=== PATIENT | male | born 1980 | race Caucasian/White ===

== ENCOUNTER 2017-05-29 08:06 | Inpatient (IN) | payer BC ==
[2017-05-22 11:22] VITALS: BMI 35.0
--- NOTE | 2017-05-27 17:00 | History and Physical ---
History & Physical Date May 27, 2017. Chief Complaint pain Right Hip History of Present Illness The patient is a 36 year old male with complaints of terrible right hip and groin pain for years. Cant do adls. limping all the time. Has tried other forms of conservative therapy with no help. Pt is ready for right hip replacement. Additional History Hepatic Disease: No Endocrine Disorder: No Kidney Disease: No Hypertension: No Heart Disease: No Bleeding Tendencies: No Infectious Diseases: No Allergies Coded Allergies: Loratadine (Verified Allergy, Unknown, UNK RXN, OCCURED A CHILD, ) Sulfa Antibiotics (Verified Allergy, Unknown, UNK RXN OCCURED A CHILD, 05/22/17) Home Medications Scheduled PRN Ibuprofen (Motrin), 400 MG PO Q6H PRN for Pain Physical Examination Skin: warm/dry, no rash Eyes: normal inspection, EOMI, sclerae normal ENT: normal ENT inspection, pharynx normal Head: normocephalic, atraumatic Neck: supple, no adenopathy, trachea midline Respiratory/Chest: lungs clear, normal breath sounds, no respiratory distress Cardiovascular: regular rate, rhythm, no edema, no murmur Abdomen / GI: normal bowel sounds, non tender Back: normal inspection Extremities: + pertinent finding (pain with rom right hip) Neurologic/Psych: no motor/sensory deficits, alert, normal reflexes, oriented x 3 Diagnosis DJD RIGHT HIP Plan of Treatment PLAN IS FOR ADMISSION AND ELECTIVE RIGHT TOTAL HIP ARTHROPLASTY.
[2017-05-29] VITALS (10 sets, daily range): BP systolic 119–161; BP diastolic 66–88; PULSE 77–107; TEMP 36.6–36.9; O2SAT 96–98; Ht 182.9 cm; Wt 116.0 kg
[~2017-05-29] VITALS: Ht 182.9 cm; Wt 116.0 kg
[2017-05-29] MEDS: TRANEXAMIC ACID INJ 1,000 MG in SODIUM CHLORIDE 0.9% 100ML 100 ML IV SCH ×2 (06:30→10:22)
[~2017-05-29 08:06] MED LIST: ACETAMINOPHEN 500 MG TAB PO SCH; CEFAZOLIN 2000 MG/60 ML D5W 60 ML IV SCH; CeleBREX 200 MG CAP PO SCH; DEXAMETHASONE 4 MG TAB PO SCH; FAMOTIDINE 20 MG TAB PO SCH; IBUP-1459 PO; LACTATED RINGER'S 1000ML 1,000 ML IV SCH; LACTATED RINGER'S 1000ML 500 ML IV ONE; LACTATED RINGER'S 1000ML IV SCH; METOCLOPRAMIDE HCL 10 MG TAB PO SCH; ROPIVACAINE 5MG/ML 30 ML 150 MG, BUPIVACAINE/EPINEPHR 0.5% MPF 30 ML, KETOROLAC TROMETH... INFIL SCH
[2017-05-29] MEDS ORDERED: BUPIVACAINE 0.5 % 5 MG/1 ML PF 10ML VIAL ONE (08:09)
[2017-05-29] MEDS ORDERED: MIDAZOLAM HCL 1 MG/ML 2ML VIAL ONE (09:08)
[2017-05-29] MEDS ORDERED: FENTANYL CITRATE INJ 50 MCG/1 ML 2 ML VIAL ONE (09:08)
[2017-05-29] MEDS ORDERED: ONDANSETRON INJ 2 MG/ML 2 ML VIAL IV PRN ×2 (09:15→12:15)
[2017-05-29] MEDS ORDERED: PHENYLEPHRINE 100MCG/ML 5ML SYR IV PRN (09:15)
[2017-05-29] MEDS ORDERED: HYDROmorphone INJ 2 MG/ML SYR/VIAL IV PRN (09:15)
[2017-05-29] MEDS ORDERED: FLUMAZENIL 0.1 MG/1 ML 10 ML VIAL IV PRN (09:15)
[2017-05-29] MEDS ORDERED: NALOXONE HCL 0.4 MG/1 ML VIAL/CARP IV PRN (09:15)
[2017-05-29] MEDS ORDERED: LABETALOL HCL IV 5 MG/ML 20ML IV PRN (09:15)
[2017-05-29] MEDS ORDERED: EpHEDrine SULFATE INJ 50 MG/ML AMP IV PRN (09:15)
[2017-05-29] MEDS ORDERED: FENTANYL CITRATE INJ 50 MCG/1 ML 2 ML VIAL IV PRN (09:15)
[2017-05-29] MEDS ORDERED: MEPERIDINE HCL 25 MG/ML CARP IV PRN (09:15)
[2017-05-29] MEDS ORDERED: ATROPINE SULFATE 0.1 MG/ML 5ML SYR IV PRN (09:15)
--- NOTE | 2017-05-29 09:49 | History & Physical Bridge Note ---
H&P Re-Evaluation Bridge Note: I have examined the patient, reviewed the History & Physical and in the interval since the performance of the History & Physical I have noted the following changes of clinical significance: No changes noted
[2017-05-29] MEDS ORDERED: ORTHO JOINT ANESTHETIC ONE (10:12)
[2017-05-29] MEDS ORDERED: POVIDONE-IODINE OP SOLN 30 ML BTL ONE (10:12)
[2017-05-29] MEDS ORDERED: BACITRACIN 50000 UNIT VIAL ONE (10:12)
[2017-05-29] MEDS ORDERED: PROPOFOL IV EMULSION 10 MG/ML 20 ML VIAL IV ONE (11:29)
[2017-05-29] MEDS ORDERED: LIDOCAINE HCL 2% 2 ML VIAL (20MG/ML) ONE (11:29)
[2017-05-29] MEDS ORDERED: EpHEDrine SULFATE 50MG/5ML SYR ONE (11:30)
[2017-05-29] MEDS ORDERED: ZOLPIDEM TARTRATE 5 MG TAB PO PRN (12:15)
[2017-05-29] MEDS ORDERED: ALUMINUM/MAGNESIUM/SIMETH (MAALOX MAX) 30 ML UDC PO PRN (12:15)
[2017-05-29] MEDS ORDERED: MAGNESIUM HYDROXIDE SUSP 30 ML UDC PO PRN (12:15)
[2017-05-29] MEDS ORDERED: BISACODYL 10 MG SUPP PR PRN (12:15)
--- NOTE | 2017-05-29 12:16 | [facility] Operative Report ---
Operative Report Operative Date May 29, 2017. Pre-Operative Diagnosis Right degenerative joint disease, hip Post-Operative Diagnosis same Procedure(s) Performed Right Total Hip Arthroplasty Surgeon Dr Dany Lyn [employer] Consultant Surgeon(s) Leeroy TORRE Estimated Blood Loss 70CC Findings As above Specimens A. Right femoral Head Complication(s) None Description of Procedure IMPLANTS USED: [place] size 58 mm PSL GUERRERO-coated acetabular cup, one acetabular screw, a size 48 mm MDM liner, an Accolade 2 stem size 4 with a 127 neck, and a size 28 mm +4 ceramic head INDICATIONS: pleasant male who has unfortunately failed all forms of conservative measures. Therefore, they have has decided to undergo elective surgical intervention. All risks and benefits of the surgery were discussed with the patient and the family in entirety. PROCEDURE: The patient was brought to the operating room and properly identified by myself, anesthesia, and staff. Patient was given a spinal anesthetic and placed on the operating table with the right hip up. The hip was then prepped and draped in the standard orthopedic fashion. We made a standard posterolateral approach over the greater trochanteric area. We then dissected down to subcutaneous tissue until the fascia was identified. We incised the fascia in line with the skin incision. We then split the gluteus jude muscles with finger dissection. We then put the Charnley retractor in place. We placed the retractor underneath the gluteus medius to expose the piriformis. The piriformis was then tagged with a tag suture and released from the insertion from the greater trochanteric area with the use of electrocautery. We then performed a T capsulotomy and the femoral head and neck were atraumatically dislocated. We then performed femoral neck osteotomy at the pre-template site. We removed the femoral head and neck without difficulty. We then placed the retractor around the acetabulum. We then began to ream the acetabulum to the appropriate size. We then impacted the cup into place and had a very good fixation within the pelvis. We then put the liner in place as well. Then using multiple size approaches from the Accolade 2 system a size #4 fit very nicely in the proximal femur. I then put trial components in place. WE had very good range of motion, excellent stability, and excellent leg length equality. We removed the trial components and irrigated the wound. We then impacted the components in place and irrigated the wound once more. We then closed the capsule and fascia with a 0 Vicryl suture, the deep dermis with 2-0 Vicryl suture, and finally the skin with a running 3-0 Vicryl subcuticular stitch. A sterile dressing was applied. The patient was taken to the recovery room in stable condition. Due to the complex nature of the procedure, the entire surgery was performed with the operational assistance of [the (COR[facility])]. The blood bank assistant was under direct supervision, was involved in the actual performance of all aspects of the surgical procedure including hemostasis, tissue retraction and incision, instrument management, patient positioning, and wound closure. I attest to the content of the Intraoperative Record and any orders documented therein. Any exceptions are noted below.
--- NOTE | 2017-05-29 13:27 | Anesthesiology Progress Note ---
Anesthesia Post Op Note Date & Time May 29, 2017 at 13:27 Vital Signs Pain Intensity: 0 Vital Signs Past 12 Hours Date Time Temp Pulse Resp B/P (MAP) Pulse Ox O2 Delivery O2 Flow Rate FiO2 05/29/17 13:21 125/79 05/29/17 13:20 69 15 05/29/17 13:20 69 15 97 05/29/17 13:16 128/77 05/29/17 13:15 75 16 97 05/29/17 13:15 74 16 05/29/17 13:11 129/71 05/29/17 13:10 85 18 05/29/17 13:10 85 18 98 05/29/17 13:09 81 23 05/29/17 13:09 78 23 97 05/29/17 13:06 123/73 05/29/17 13:04 73 18 97 05/29/17 13:04 73 18 05/29/17 13:01 120/71 05/29/17 12:59 77 21 05/29/17 12:59 77 21 97 05/29/17 12:56 126/69 05/29/17 12:54 81 19 98 05/29/17 12:54 81 19 05/29/17 12:51 126/74 05/29/17 12:50 123/72 05/29/17 12:49 84 05/29/17 12:49 36.6 77 15 123/72 97 Nasal Cannula 2 05/29/17 12:49 84 97 05/29/17 08:24 36.9 79 20 161/88 98 Room Air Notes Mental Status: alert / awake / arousable, participated in evaluation Pt Amnestic to Procedure: Yes Nausea / Vomiting: adequately controlled Pain: adequately controlled Airway Patency, RR, SpO2: stable & adequate BP & HR: stable & adequate Hydration State: stable & adequate Neuraxial Anesthesia: was administered, sensory block is resolving Anesthetic Complications: no major complications apparent
[2017-05-29] MEDS: SODIUM CHLORIDE 0.9% 1000ML 1,000 ML IV SCH ×2 (14:42→21:53)
[2017-05-29] MEDS: ACETAMINOPHEN 500 MG TAB PO SCH ×2 (16:06→23:54)
[2017-05-29] MEDS: CEFAZOLIN IV 2,000 MG in DEXTROSE 5% 50ML 50 ML IV SCH (18:24)
[2017-05-29] MEDS ORDERED: TRANEXAMIC ACID INJ 1,000 MG in SODIUM CHLORIDE 0.9% 100ML 100 ML IV SCH (18:30)
[2017-05-29] MEDS: OXYCODONE HCL IR 5 MG TAB (IMMEDIATE RELEASE) PO PRN ×2 (18:31→23:56)
[2017-05-29] MEDS: DOCUSATE SODIUM 100 MG CAP PO SCH (20:39)
[2017-05-29] MEDS: ASPIRIN 81 MG ECTAB PO SCH (20:39)
[2017-05-30] MEDS: CEFAZOLIN IV 2,000 MG in DEXTROSE 5% 50ML 50 ML IV SCH (01:56)
[2017-05-30 03:00] VITALS: BP 135/80; PULSE 82; TEMP 36.6; O2SAT 96
[2017-05-30 06:27] LABS: MEAN CELL VOLUME 89.5 fL (80-100); MEAN CORPUSCULAR HEMOGLOBIN 31.9 pg (25-34); MEAN CORPUSCULAR HGB CONC 35.6 g/dl (32-36); MEAN PLATELET VOLUME 9.7 fL (7.4-10.4); PLATELET COUNT 210 K/uL (130-400); RED BLOOD COUNT 4.58 M/uL (4.7-6.1); WHITE BLOOD COUNT 8.95 K/uL (4.8-10.8)
[2017-05-30 07:01] VITALS: BP 134/76; PULSE 75; TEMP 36.8; O2SAT 98
[2017-05-30 07:08] LABS: COMPLETE YES; IG% 0.2 %; LYMPH % 9.4 %; LYMPH ABS # 0.84 K/uL (1.2-3.4); MONO % 7.2 %; NEUT % 83.2 %
[2017-05-30] MEDS: ACETAMINOPHEN 500 MG TAB PO SCH ×2 (07:26→16:50)
[2017-05-30] MEDS ORDERED: DEXAMETHASONE INJ 10 MG in SYRINGE 0 ML IV SCH (07:30)
[2017-05-30] MEDS: SODIUM CHLORIDE 0.9% 1000ML 1,000 ML IV SCH (07:33)
--- NOTE | 2017-05-30 07:58 | Orthopedic Progress Note ---
Orthopedic Progress Note Date of Service May 30, 2017. Subjective Post OP Day: 1 Reports: feeling well, pain controlled w PO medications, Denies: complaints, chest pain, SOB, nausea / vomiting, light headedness, calf pain Objective calves soft nontender, N/V intact, hip located, capillary refill less than 2 sec., dressing C/D/I, A&O x3, toes mobile, hemovac drainage (125/50cc) Date Time Temp Pulse Resp B/P (MAP) Pulse Ox O2 Delivery O2 Flow Rate FiO2 05/30/17 07:01 36.8 75 19 134/76 (95) 98 Room Air 05/30/17 03:00 36.6 82 18 135/80 (98) 96 Room Air 05/29/17 23:55 Room Air 05/29/17 23:00 36.7 100 18 119/66 (83) 96 Room Air 05/29/17 19:09 36.8 107 18 143/82 (102) 97 Room Air 05/29/17 16:50 36.7 105 18 138/80 (99) 98 Nasal Cannula 2.0 05/29/17 15:50 36.6 86 18 141/84 (103) 96 Nasal Cannula 2.0 05/29/17 15:15 Nasal Cannula 2.0 05/29/17 14:50 36.6 80 18 130/81 (97) 97 Nasal Cannula 2.0 05/29/17 14:20 36.6 79 18 127/80 (96) 98 Nasal Cannula 2.0 05/29/17 14:14 96 Nasal Cannula 2.0 05/29/17 14:09 96 Nasal Cannula 2.0 05/29/17 14:05 36.7 77 16 136/87 (103) 96 Nasal Cannula 2.0 05/29/17 13:27 71 16 05/29/17 13:27 71 16 05/29/17 13:27 71 16 97 05/29/17 13:27 71 16 97 05/29/17 13:26 127/75 05/29/17 13:26 127/75 05/29/17 13:23 36.8 74 20 124/74 97 Nasal Cannula 2 05/29/17 13:22 72 18 05/29/17 13:22 72 18 05/29/17 13:22 72 18 97 05/29/17 13:22 72 18 97 8/28/17 13:21 125/79 05/29/17 13:20 69 15 05/29/17 13:20 69 15 97 05/29/17 13:16 128/77 05/29/17 13:15 75 16 97 05/29/17 13:15 74 16 05/29/17 13:11 129/71 05/29/17 13:10 85 18 05/29/17 13:10 85 18 98 05/29/17 13:09 81 23 05/29/17 13:09 78 23 97 05/29/17 13:06 123/73 05/29/17 13:04 73 18 97 05/29/17 13:04 73 18 05/29/17 13:01 120/71 05/29/17 12:59 77 21 05/29/17 12:59 77 21 97 05/29/17 12:56 126/69 05/29/17 12:54 81 19 98 05/29/17 12:54 81 19 05/29/17 12:51 126/74 05/29/17 12:50 123/72 05/29/17 12:49 84 05/29/17 12:49 36.6 77 15 123/72 97 Nasal Cannula 2 05/29/17 12:49 84 97 05/29/17 08:24 36.9 79 20 161/88 98 Room Air Laboratory Results 24 Hours: Test 05/30/17 05:56 White Blood Count 8.95 K/uL Red Blood Count 4.58 M/uL Hemoglobin 14.6 g/dL Hematocrit 41.0 % Mean Corpuscular Volume 89.5 fL Mean Corpuscular Hemoglobin 31.9 pg Mean Corpuscular Hemoglobin Concent 35.6 g/dl Platelet Count 210 K/uL Mean Platelet Volume 9.7 fL Neutrophils (%) (Auto) 83.2 % Lymphocytes (%) (Auto) 9.4 % Monocytes (%) (Auto) 7.2 % Eosinophils (%) (Auto) 0.0 % Basophils (%) (Auto) 0.0 % Neutrophils # (Auto) 7.45 K/uL Lymphocytes # (Auto) 0.84 K/uL Monocytes # (Auto) 0.64 K/uL Eosinophils # (Auto) 0.00 K/uL Basophils # (Auto) 0.00 K/uL Assessment & Plan Assessment: POD #1 Right ALEX Plan: DVT prophylaxis - ASA PT/OT Discharge - Home OPPT Inhouse Planning Pain Management: PO Tylenol, Oxy IR DVT Prophylaxis: ASA Discharge Planning Discharge Planning: home with oppt Pain Management: Oxy IR Therapy: Physical Therapy
[2017-05-30] MEDS: OXYCODONE HCL IR 5 MG TAB (IMMEDIATE RELEASE) PO PRN ×2 (08:25→14:52)
[2017-05-30] MEDS: ASPIRIN 81 MG ECTAB PO SCH (08:25)
[2017-05-30] MEDS: DOCUSATE SODIUM 100 MG CAP PO SCH (08:26)
[2017-05-30] MEDS ORDERED: RXC5 PO (13:25)
[2017-05-30] MEDS ORDERED: ACET-24 PO (13:25)
[2017-05-30] MEDS ORDERED: ASPEC81 PO (13:25)
--- NOTE | 2017-05-30 13:29 | Discharge Instructions ---
Discharge Instructions Date of Service May 30, 2017. Admission Reason for Admission: Right Hip Osteoarthritis Discharge Discharge Diagnosis / Problem: s/p right total hip arthroplasty Discharge Goals Goal(s): Decrease discomfort, Improve function Activity Recommendations Activity Limitations: per Instructions/Follow-up section . Instructions / Follow-Up Instructions / Follow-Up ACTIVITY RECOMMENDATIONS: SELF CARE INSTRUCTIONS AFTER TOTAL HIP REPLACEMENT Until the incision and soft tissues around your hip have healed, there is a possibility that the hip prosthesis could dislocate. A. Observe the following precautions to prevent dislocation: 1. Don't bend your hip greater than 90 degrees. 2. Avoid crossing your legs or ankles while standing or lying. 3. Sit with your feet placed 6 inches apart. 4. When sitting, keep your knees below your hips. Sit on a firm surface, avoid deep, soft chairs and couches. Use an elevated toilet seat in the bathroom. 5. Don't bend over at the waist. Use a long handled shoehorn and a sock aid to help you put on your shoes and socks. A wood stock blank handler can help you molded goods spot picker objects that are too high or too low to reach. 6. Keep car riding to a minimum for at least one month after surgery. B. Your balance may be shaky for a while. Use crutches or a walker until directed by your doctor. C. Use hand rails when walking on stairs. D. Wear low heeled shoes with non-slip soles. E. Be sure that your floors are free of things that could trip you - throw rugs , electrical cords, small objects. Avoid wet and waxed floors, especially with crutches and canes. F. Try to walk several times a day with rest periods between. G. Continue with all the exercises taught to you in the hospital. Again, make walking a part of your daily routine. SPECIAL CARE INSTRUCTIONS: VERY IMPORTANT TO READ AND REVIEW A. You may still be at risk for phlebitis and blood clots. 1. Wear surgical stockings (ALANA hose) for 2 weeks after surgery to improve circulation and reduce swelling. 2. Take Aspirin 81mg twice daily for 4 weeks or as directed by your doctor. This is your blood thinner. 3. High risk patients may be prescribed a stronger blood thinner if necessary. 4. If you are on Coumadin normally, your family doctor/coding specialist home health should monitor your blood work. Expect a phone call the day of or the day after bloodwork is drawn to adjust your dosage. B. You must take antibiotics before having dental work, bladder, bowel and other surgery. Your doctor will provide you with a permanent card to carry describing precautions. C. Call [facility] [place] [place] if you have a fever, redness or swelling around the incision, cloudy drainage from incision, or sudden increase in pain in your hip, not relieved by your regular pain medication. D. Please call the office at if you have any concerns or questions about your operation or recovery. * YOU MAY SHOWER, NO TUB BATHS UNTIL CLEARED BY YOUR DOCTOR. * WEAR ALANA HOSE 20 HOURS PER DAY FOR 2 WEEKS. * YOU SHOULD USE A WALKER OR CRUTCHES FOR 2-4 WEEKS. THIS WILL HELP PREVENT STRAIN ON YOUR HIP MUSCLE AND ALLOW IT TO HEAL PROPERLY. YOU MAY WEAN TO A CANE TOLERATED. * OUTPATIENT PHYSICAL THERAPY, PLEASE SCHEDULE THIS 3 TIMES PER WEEK. * YOU MAY HAVE A LARGE, BAND-KEVIN LIKE DRESSING. THIS WILL REMAIN ON YOUR INCISION FOR 7 DAYS, THEN CAN BE REMOVED. IF INCISION IS LEAKING THROUGH DRESSING, PLEASE CALL THE OFFICE . FOLLOW UP VISIT: PLEASE SCHEDULE A VISIT TO THE OFFICE TOMORROW 05/31/17 OR MONDAY TO HAVE YOUR DRAIN REMOVED AND BANDAGE PLACED OVER WHERE THE DRAIN WAS. If appointment is not already scheduled: Please call [facility] [place] [place] to make a follow-up appointment for 2 weeks after your surgery at . Current Hospital Diet Patient's current hospital diet: Regular Diet Discharge Diet Recommended Diet: Regular Diet Procedures Procedures Performed: Right Total Hip Arthroplasty Pending Studies Studies pending at discharge: no Medical Emergencies . Who to Call and When: Medical Emergencies: If at any time you feel your situation is an emergency, please call 491 immediately. . Non-Emergent Contact Non-Emergency issues call your: Surgeon Call Non-Emergent contact if: temperature is above 101, your pain is worsening , wound has increased drainage, wound has increased redness . "Provider Documentation" section prepared by Frankie Mosqueda. . VTE Core Measure Inpt VTE Proph given/why not?: Other Anticoagulation (ASA) [place] Drug Monitoring Program Search Results: patient reviewed within database, no issues identified
[2017-05-30 13:33] VITALS: BP 134/76; PULSE 75; TEMP 36.8; O2SAT 98
[2017-05-30 15:40] VITALS: BP 142/88; PULSE 73; TEMP 36.9; O2SAT 93
--- NOTE | 2017-06-01 10:24 | DISCHARGE SUMMARY ---
DISCHARGE DIAGNOSIS: Degenerative joint disease, right hip. CONSULTS: None. COMPLICATIONS: None. PROCEDURES: Right total hip arthroplasty performed by Dr. Juarez on 05/29/2017. BRIEF HISTORY: As dictated in the history and physical. HOSPITAL SUMMARY: The patient was admitted on the above-noted date and had the above-noted surgery performed which he tolerated well. On the first postoperative day, he was feeling well and pain was controlled. Calves were soft, nontender. Neurovascularly intact. Hip was located. Dressings clean, dry and intact. Toes were mobile. Vital signs were stable. The patient was afebrile and hemoglobin was 14.6. The patient was started on physical therapy protocol and continued on DVT prophylaxis and pain management. The rest of the patient's stay was essentially uneventful and by the end of 05/30/2017 the patient was remaining stable. Plans were made for the patient to have outpatient physical therapy and it was felt he could be discharged to home on 05/30/2017. For further review, please see chart. LAB AND X-RAY DATA: As per chart. DISCHARGE INSTRUCTIONS: The patient was discharged to home on 05/30/2017. DIET: Regular. ACTIVITY: Weightbearing as tolerated right lower extremity. Follow ALEX instruction sheets as noted and follow up with Dr. Juarez in 10-14 days. The patient to call for appointment if one has not been made for you. DISCHARGE MEDICATIONS: Acetaminophen 1000 mg p.o. q. 8 hours, aspirin 81 mg p.o. b.i.d., oxycodone 5-10 mg p.o. q. 4 hours p.r.n. Stop taking ibuprofen.
== END 2017-05-30 17:20 | disposition home or self-care (01) | DRG 470 ==
LOC: C.ACU 08:06 → C.3E 08:15 → OBSVTOIN 12:13 → ENRESERV 13:20
PROVIDERS: ADMIT Orthopaedic Surgery; ATTEND Orthopaedic Surgery
PROC: 0SR903Z Replacement of Right Hip Joint with Ceramic Synthetic Substitute, Open Approach (ICD-10-PCS; principal; 2017-05-29 10:15)
DX: M16.11 Unilateral primary osteoarthritis, right hip (principal); E66.9 Obesity, unspecified; Z68.34 Body mass index [BMI] 34.0-34.9, adult

== ENCOUNTER 2019-11-25 04:49 | Inpatient (IN) ==
--- NOTE | 2019-10-18 11:17 | PAT Medication Instructions ---
Medication Instructions Date of Service October 18, 2019 Home Medications celecoxib [Celebrex] 100 mg PO BID ASK your surgeon for instructions celecoxib [Celebrex] 100 mg PO BID Other Notes If you have any questions please call us at [phone] or [phone] or [phone] or [phone]
--- NOTE | 2019-10-21 09:04 | Anesthesiology Consultation ---
Date of Service October 21, 2019 Assessment & Plan (1) Encounter for pre-operative examination: Chart Review Chart Review: Acceptable Risk for Surgery and Patient seen in Pre Admission Testing Teaching & Discussion Pre-Anesthesia Teaching/Discussion Notes: Instructed NPO after midnight before surgery,except medications with 15 cc of water. Medication instructions provided according to the PAT guidelines. History Surgery Operation Date: 11/25/19 07:00 Proposed Procedures p Left Total Hip Arthroplasty - Bora Ferrari Larry Height/Weight Height: 6 ft Weight: 125 kg Allergies Allergy/AdvReac Type Severity Reaction Status Date / Time loratadine Allergy Unknown UNK RXN, Verified 10/14/19 09:37 OCCURED A CHILD Sulfa (Sulfonamide Allergy Unknown UNK RXN Verified 10/14/19 09:37 Antibiotics) OCCURED A CHILD Medications Home Medications Medication Instructions Recorded Confirmed Last Taken celecoxib [Celebrex] 100 mg PO BID 10/14/19 10/14/19 Unknown Past Medical History Medical History DJD (degenerative joint disease) Obesity Osteoarthritis Exercise / Class Metabolic Activity II 4-5 Yardwork/Stairs/Walk up hill Past Surgical History Surgical History History of surgery on arm PIECE OF METAL REMOVED RIGHT ARM History of total right hip replacement Hx laparoscopic cholecystectomy Hx of hand surgery PINS IN RING FINGER RIGHT HAND Past Anesthesia History No Family Hx of Anesthesia Complications and Other (awareness with right ALEX) History of PONV No Hx of PONV and No Hx of Motion Sickness Social History Smoking Status: Never smoker Do You Dip or Chew Tobacco: No Hx Alcohol Use: Yes alcohol intake frequency: holidays/special occasions only Hx Substance Use: No substance use type: does not use Review of Systems Patient denies chest pain, shortness of breath, dyspnea on exertion, cough, wheezing, palpitations. Physical Exam Vital Signs VITALS BP 146/84 P 86 TEMP 98.7 SP02 94%RA RESP 18 PHYSICAL Full neck and c-spine range of motion. Full TMJ range of motion. TMD 4 finger breaths Mallampati Score 2 Dentition: intact Lungs: clear throughout to auscultation Cardiac: regular rate and rhythm, no murmurs noted Spine: normal Extremities: no edema Trimmed simmons Testing Laboratory Results 10/21/19 09:24 10/21/19 09:24 PT 10.5 Seconds (9.0-12.0) 10/21/19 09:24 INR 1.0 (0.9-1.1) 10/21/19 09:24 APTT 25.4 Seconds (21.0-31.0) 10/21/19 09:24 Urine Color Dark Yellow 10/21/19 09:24 Urine Appearance Clear (Clear) 10/21/19 09:24 Urine pH 5.5 (4.5-7.5) 10/21/19 09:24 Ur Specific [place] 1.033 (1.000-1.030) H 10/21/19 09:24 Urine Protein Negative (Negative) 10/21/19 09:24 Urine Glucose (UA) Negative (Negative) 10/21/19 09:24 Urine Ketones Negative (Negative) 10/21/19 09:24 Urine Nitrite Negative (Negative) 10/21/19 09:24 Ur Leukocyte Esterase Negative (Negative) 10/21/19 09:24 Blood Type A Positive 10/21/19 09:24 Antibody Screen NEGATIVE 10/21/19 09:24 10/08/19 SODIUM 141 POTASSIUM 3.7 CHLORIDE 106 CO2 26 BUN 9.7 CREATININE 0.95 GLUCOSE 111 Electrocardiogram Date: 10/08/19 SR at 72bpm. Chest X-Ray Date: 10/21/19 Findings: + NAD
--- NOTE | 2019-10-21 09:43 | XRay Report ---
XR chest Pre-admission PA/Lat CLINICAL HISTORY: Preoperative chest COMPARISON STUDY: No previous studies for comparison. FINDINGS: The cardiac and mediastinal contours are normal. There is no evidence of focal pulmonary co nsolidation. There is no evidence of failure. No pleural effusions are visualized.[ IMPRESSION: No active disease in the chest. ACT 112: Negative or not required by law. Electronically signed by: Ariel Garcia M.D. 10/21/2019 9:42 AM
[2019-10-21 11:38] LABS: Basophils # (auto) 0.01 K/uL (0-0.2); Basophils % (auto) 0.2 %; Eosinophils # (auto) 0.05 K/uL (0-0.5); Eosinophils % (auto) 0.9 %; Hematocrit (blood only) 45.6 % (42-52); Hemoglobin 16.7 g/dL (14.0-18.0); Immature Granulocytes # (auto) 0.01 K/uL (0.00-0.02); Immature Granulocytes % (auto) 0.2 %; Lymphocytes # (auto) 1.38 K/uL (1.2-3.4); Lymphocytes % (auto) 25.7 %; Mean Corpuscular Hemoglobin 33.1 pg (25-34); Mean Corpuscular Hgb Conc 36.6 g/dL (32-36); Mean Corpuscular Volume 90.5 fL (80-100); Mean Platelet Volume 10.4 fL (7.4-10.4); Monocytes # (auto) 0.44 K/uL (0.11-0.59); Monocytes % (auto) 8.2 %; Neutrophils # (auto) 3.47 K/uL (1.4-6.5); Neutrophils % (auto) 64.8 %; Platelet Count 226 K/uL (130-400); RDW Coefficient of Variation 13.1 % (11.5-14.5); RDW Standard Deviation 42.4 fL (36.4-46.3); Red Blood Count 5.04 M/uL (4.7-6.1); White Blood Count 5.36 K/uL (4.8-10.8)
[2019-10-21 11:49] LABS: Albumin Level 4.2 gm/dl (3.4-5.0); BUN Creatinine Ratio 10.1 (10-20); Calcium 9.1 mg/dl (8.5-10.1); Creatinine Clr Calc Pharmacy 102.4 ml/min; Est GFR (African American) 78.4; Est GFR (Non-African American) 67.6; Potassium 3.8 mmol/L (3.5-5.1)
[2019-10-21 11:51] LABS: Albumin Globulin Ratio 1.4 (0.9-2); Bilirubin,Total 2.1 mg/dl (0.2-1); Globulin 2.9 gm/dl (2.5-4.0); Total Protein 7.1 gm/dl (6.4-8.2)
[2019-10-21 11:54] LABS: Partial Thromboplastin Ratio 0.9; Partial Thromboplastin Time 25.4 Seconds (21.0-31.0); Prothrombin Time 10.5 Seconds (9.0-12.0)
[2019-10-21 12:04] LABS: Appearance Urine Clear (Clear); Bilirubin Urine Negative (Negative); Blood Urine Negative (Negative); Color Urine Dark Yellow; Glucose Urine UA Negative (Negative); Ketones Urine Negative (Negative); Leukocyte Esterase Urine Negative (Negative); Nitrite Urine Negative (Negative); Protein Urine Negative (Negative); Specific Gravity Urine 1.033 (1.000-1.030); Urobilinogen Urine Negative (Negative); pH Urine 5.5 (4.5-7.5)
--- NOTE | 2019-11-24 19:34 | History & Physical Report ---
Date of Service November 24, 2019 Assessment & Plan (1) Degenerative joint disease of left hip: Plan is to admit pt and undergo left total hip arthroplasty History of Present Illness Chief Complaint: left hip pain Primary Care Provider: Brian Narayanan Pt has been having pain for years. Cant do adls anymore. Had his right hip replaced and doing well. Allergies Allergy/AdvReac Type Severity Reaction Status Date / Time loratadine Allergy Unknown UNK RXN, Verified 10/14/19 09:37 OCCURED A CHILD Sulfa (Sulfonamide Allergy Unknown UNK RXN Verified 10/14/19 09:37 Antibiotics) OCCURED A CHILD Home Medications Home Medications Medication Instructions Recorded Confirmed Type celecoxib [Celebrex] 100 mg PO BID 10/14/19 10/14/19 History Past Med/Surg History Medical History DJD (degenerative joint disease) Obesity Osteoarthritis Surgical History History of surgery on arm PIECE OF METAL REMOVED RIGHT ARM History of total right hip replacement Hx laparoscopic cholecystectomy Hx of hand surgery PINS IN RING FINGER RIGHT HAND Social History Preferred Language: Jordanian Communication Ability: Effective Director Of Graduate Admissions Required: No Beliefs That Will Affect Care: None Current Living Situation: Spouse Other Information That Helps Us Care for You: No Feels Safe at Home: Yes Safety Concerns: Feels Safe At This Time Smoking Status: Never smoker Do You Dip or Chew Tobacco: No ; Second Hand Exposure: No ; Tobacco Cessation Education Requested by Patient: No Hx Alcohol Use: Yes Hx Substance Use: No Review of Systems All systems reviewed & are unremarkable except as noted in HPI & below Physical Exam Constitutional: WD/WN, vitals as above Neck: trachea midline, no thyromegaly Respiratory: normal respiratory effort, lungs clear to auscultation Cardiovascular: RRR, no murmur, no edema Gastrointestinal (Abdomen): normal bowel sounds, soft, nontender, no hepatosplenomegaly Musculoskeletal: Hip: + limited ROM of hip
[2019-11-25] MEDS ORDERED: ROPIVACAINE 0.5% HCL/PF 150 MG, BUPIVACAINE 0.5% MPF 30 ML, EPINEPHrine 30MG/30ML (OR U... INSTIL SCH (06:00)
[2019-11-25] MEDS ORDERED: ACETAMINOPHEN 500 MG TAB PO SCH (06:00)
[2019-11-25] MEDS ORDERED: TRANEXAMIC ACID 1,000 MG **IV Pre-op IV SCH (06:00)
[2019-11-25] MEDS ORDERED: dexAMETHasone 4 MG TAB PO SCH (06:00)
[2019-11-25] MEDS ORDERED: CEFAZOLIN 3000MG 72.5 ML IV SCH (06:00)
[2019-11-25] MEDS ORDERED: CeleBREX 200 MG CAP PO SCH (06:00)
[2019-11-25] MEDS ORDERED: TRANEXAMIC ACID 1,000 MG **IV Intra-op IV SCH (06:00)
[2019-11-25] MEDS ORDERED: LR 500ML BOLUS, THEN 15ML/HR IV SCH (06:00)
[2019-11-25] MEDS ORDERED: METOCLOPRAMIDE HCL 10 MG TABLET PO SCH (06:00)
[2019-11-25] MEDS ORDERED: FAMOTIDINE 20 MG TAB PO SCH (06:00)
[2019-11-25] MEDS ORDERED: BUPIVACAINE 0.5 % 5 MG/1 ML PF 10ML VIAL ONE (06:30)
[2019-11-25] MEDS ORDERED: fentaNYL citrate 100 MCG/2 ML VIAL ONE (06:42)
[2019-11-25] MEDS ORDERED: MIDAZOLAM HCL 1 MG/ML 2ML VIAL ONE ×2 (06:42→07:07)
[2019-11-25] MEDS ORDERED: PROPOFOL IV EMULSION 10 MG/ML 20 ML VIAL IV ONE ×3 (06:42→08:13)
[2019-11-25] MEDS ORDERED: LIDOCAINE HCL 2% 2 ML VIAL/AMP(20MG/ML) INFIL ONE (06:42)
--- NOTE | 2019-11-25 06:42 | History & Physical Bridge Note ---
Date of Service November 25, 2019 History & Physical Bridge Note I have examined the patient, reviewed the History & Physical and in the interval since the performance of the History & Physical I have noted the following changes of clinical significance: no changes noted
[2019-11-25] MEDS ORDERED: BACITRACIN INJ 50,000 UNIT VIAL ONE (06:44)
[2019-11-25] MEDS ORDERED: ORTHO JOINT ANESTHETIC ONE (06:44)
[2019-11-25] MEDS ORDERED: HYDROmorphone INJ 1 MG/ML SYRINGE IV PRN (07:02)
[2019-11-25] MEDS ORDERED: ATROPINE SULFATE 0.1 MG/ML 10ML SYR IV PRN (07:02)
[2019-11-25] MEDS ORDERED: KETOROLAC 30 MG/ML VIAL IV PRN (07:02)
[2019-11-25] MEDS ORDERED: ePHEDrine sulfate 50 MG/ML AMP IV PRN (07:02)
[2019-11-25] MEDS ORDERED: ONDANSETRON INJ 2 MG/ML 2 ML VIAL IV PRN ×2 (07:02→09:27)
[2019-11-25] MEDS ORDERED: ONDANSETRON INJ 2 MG/ML 2 ML VIAL ONE (07:16)
[2019-11-25] MEDS ORDERED: DEXAMETHASONE SOD INJ 4 MG/ML VIAL ONE (07:16)
--- NOTE | 2019-11-25 08:13 | Operative Report ---
Post Operative Report Pre & Post Diagnosis Operation Date: 11/25/19 07:00 Pre-Op Diagnosis: Left Hip Osteoarthritis Post-Op Diagnosis: Left Hip Osteoarthritis I identified the patient and participated in the time-out.: Yes Procedure Operation Date: 11/25/19 07:00 Actual Procedures p Left Total Hip Arthroplasty, Uncemented(Left) - [facility] Surgeon [facility] Benedicto Lopez PAc Estimated Blood Loss 35 Findings Consistent with Post-Op Diagnosis Specimens none Complications none Disposition Disposition: Recovery Room Description of Procedure IMPLANTS USED: [place] size 58 mm Trident 2 Tritanium acetabular cup, 1 acetabular screw, 36 mm X3 elevated liner, a #5 Accolade 2 stem with a 1 and 23 neck, 36 mm +5 ceramic head INDICATIONS: Mr. Kay is a pleasant male who has unfortunately failed all forms of conservative measures. Therefore, they have has decided to undergo elective surgical intervention. All risks and benefits of the surgery were discussed with the patient and the family in entirety. PROCEDURE: The patient was brought to the operating room and properly identified by myself, anesthesia, and staff. Patient was given a spinal anesthetic and placed on the operating table with the left hip up. The hip was then prepped and draped in the standard orthopedic fashion. We made a standard posterolateral approach over the greater trochanteric area. We then dissected down to subcutaneous tissue until the fascia was identified. We incised the fascia in line with the skin incision. We then split the gluteus jude muscles with finger dissection. We then put the Charnley retractor in place. We placed the retractor underneath the gluteus medius to expose the piriformis. The piriformis was then tagged with a tag suture and released from the insertion from the greater trochanteric area with the use of electrocautery. We then performed a T capsulotomy and the femoral head and neck were atraumatically dislocated. We then performed femoral neck osteotomy at the pre-template site. We removed the femoral head and neck without difficulty. We then placed the retractor around the acetabulum. We then began to ream the acetabulum to the appropriate size. We then impacted the cup into place and had a very good fixation within the pelvis. We then put the liner in place as well. Then using multiple size approaches from the Accolade 2 system a size ##5 fit very nicely in the proximal femur. I then put trial components in place. WE had very good range of motion, excellent stability, and excellent leg length equality. We removed the trial components and irrigated the wound. We then impacted the components in place and irrigated the wound once more. We then closed the capsule and fascia with a 0 Vicryl suture, the deep dermis with 2-0 Vicryl suture, and finally the skin with a running 3-0 Vicryl subcuticular stitch. A sterile dressing was applied. The patient was taken to the recovery room in stable condition. Due to the complex nature of the procedure, the entire surgery was performed with the operational assistance of Benedicto Peterson PA-C. The engineer second assistant was under direct supervision, was involved in the actual performance of all aspects of the surgical procedure including hemostasis, tissue retraction and incision, instrument management, patient positioning, and wound closure. I attest to the content of the Intraoperative Record and any orders documented therein. Any exceptions are noted below.
[2019-11-25] MEDS ORDERED: ePHEDrine sulfate 50 MG/ML SYR ONE (09:18)
[2019-11-25] MEDS ORDERED: MAGNESIUM HYDROXIDE SUSP 30 ML UDC PO PRN (09:27)
[2019-11-25] MEDS ORDERED: ALUMINUM/MAGNESIUM SUSP 30 ML UDC PO PRN (09:27)
[2019-11-25] MEDS ORDERED: METOCLOPRAMIDE HCL INJ 5 MG/ML 2 ML VIAL IV PRN (09:27)
[2019-11-25] MEDS ORDERED: NALOXONE HCL 0.4 MG/1 ML VIAL/CARP IV PRN (09:27)
[2019-11-25] MEDS ORDERED: TRAMADOL HCL 50 MG TABLET PO PRN (09:27)
[2019-11-25] MEDS ORDERED: bisacodyL 10 MG SUPP PR PRN (09:27)
--- NOTE | 2019-11-25 09:54 | Anesthesiology Progress Note ---
Date of Service November 25, 2019 Anesthesia Post Procedure Vital Signs Vital Signs: Temp Pulse Pulse Resp BP Pulse Ox 11/25/19 09:15 36.7 C 79 16 119/69 11/25/19 09:05 77 16 114/74 96 11/25/19 08:55 36.3 C L 68 16 115/69 96 11/25/19 08:45 79 16 101/71 97 11/25/19 08:37 36.0 C L 90 12 117/68 97 11/25/19 05:43 37.1 C 67 20 135/97 97 Pain Intensity Left Hip: Pain Intensity: 6 Transfer of Care Handoff Completed per policy Notes Mental Status: alert / awake / arousable Patient Amnestic to Procedure: Yes Nausea / Vomiting: adequately controlled Pain: adequately controlled Airway Patency, RR, SpO2: stable & adequate BP & HR: stable & adequate Hydration State: stable & adequate Neuraxial Anesthesia: was administered and sensory block is resolving Anesthetic Complications: no major complications apparent
[2019-11-25] MEDS: SODIUM CHLORIDE 0.9% 1000ML 1,000 ML IV SCH ×2 (10:18→20:00)
[2019-11-25] MEDS: MULTIVITAMIN TAB PO SCH (10:20)
[2019-11-25] MEDS: ASPIRIN 81 MG ECTAB PO SCH ×2 (10:20→20:01)
[2019-11-25] MEDS: DOCUSATE SODIUM 100 MG CAP PO SCH ×2 (10:20→20:01)
[2019-11-25] MEDS: ACETAMINOPHEN 500 MG TAB PO SCH ×2 (13:30→21:11)
[2019-11-25] MEDS: CEFAZOLIN 2000MG 2,000 MG/15 ML SYR IV SCH ×2 (15:47→23:25)
[2019-11-25] MEDS ORDERED: SENNA 8.6 MG TAB PO SCH (21:00)
[2019-11-25] MEDS: OXYCODONE HCL IR 5 MG TAB (IMMEDIATE RELEASE) PO PRN (23:25)
[2019-11-26] MEDS: ACETAMINOPHEN 500 MG TAB PO SCH (05:00)
[2019-11-26 05:37] LABS: Eosinophils # (auto) 0.01 K/uL (0-0.5); Eosinophils % (auto) 0.1 %; Hemoglobin 14.4 g/dL (14.0-18.0); Immature Granulocytes # (auto) 0.02 K/uL (0.00-0.02); Immature Granulocytes % (auto) 0.2 %; Lymphocytes # (auto) 0.75 K/uL (1.2-3.4); Lymphocytes % (auto) 6.7 %; Mean Corpuscular Hemoglobin 32.6 pg (25-34); Mean Corpuscular Volume 90.5 fL (80-100); Mean Platelet Volume 10.1 fL (7.4-10.4); Monocytes # (auto) 0.71 K/uL (0.11-0.59); Monocytes % (auto) 6.3 %; Neutrophils # (auto) 9.75 K/uL (1.4-6.5); Neutrophils % (auto) 86.7 %; Platelet Count 237 K/uL (130-400); RDW Coefficient of Variation 13.4 % (11.5-14.5); RDW Standard Deviation 43.5 fL (36.4-46.3); Red Blood Count 4.42 M/uL (4.7-6.1); White Blood Count 11.24 K/uL (4.8-10.8)
[2019-11-26 06:11] LABS: BUN Creatinine Ratio 14.8 (10-20); Calcium 8.4 mg/dl (8.5-10.1); Creatinine Clr Calc Pharmacy 149.6 ml/min; Potassium 4.2 mmol/L (3.5-5.1)
--- NOTE | 2019-11-26 07:50 | Anesthesiology Progress Note ---
Date of Service November 26, 2019 Anesthesia Post Procedure Vital Signs Vital Signs: Temp Pulse Pulse Resp BP Pulse Ox 11/26/19 07:02 36.5 C 58 L 17 122/72 97 11/26/19 03:05 36.7 C 62 16 102/62 98 11/25/19 22:18 36.7 C 71 17 114/73 96 11/25/19 19:57 36.8 C 95 H 18 107/76 96 11/25/19 15:15 36.9 C 97 H 17 134/69 97 11/25/19 12:22 36.4 C L 84 19 128/72 98 11/25/19 11:15 36.5 C 76 18 123/73 97 11/25/19 10:15 36.4 C L 72 18 119/76 96 11/25/19 09:45 36.6 C 64 18 113/73 95 11/25/19 09:15 36.7 C 79 16 119/69 11/25/19 09:05 77 16 114/74 96 11/25/19 08:55 36.3 C L 68 16 115/69 96 11/25/19 08:45 79 16 101/71 97 11/25/19 08:37 36.0 C L 90 12 117/68 97 Pain Intensity Left Hip: Pain Intensity: 6 Left Groin: Pain Intensity: 6 Notes Mental Status: alert / awake / arousable and participated in evaluation Patient Amnestic to Procedure: Yes Nausea / Vomiting: adequately controlled Pain: adequately controlled Airway Patency, RR, SpO2: stable & adequate BP & HR: stable & adequate Hydration State: stable & adequate Neuraxial Anesthesia: was administered and sensory block resolved Anesthetic Complications: no major complications apparent and Pt Satisfied with anesthetic care
[2019-11-26] MEDS ORDERED: dexAMETHasone 10 MG in SYRINGE 0 ML IV SCH (08:00)
--- NOTE | 2019-11-26 08:25 | Orthopedic Progress Note ---
Date of Service November 26, 2019 Assessment & Plan (1) Degenerative joint disease of left hip: Postop day 1 status post left total hip arthroplasty PT/OT protocols. Weightbearing as tolerated. DVT prophylaxis with ASA twice daily and SCDs. Pain management with p.o. Tylenol oxycodone and or tramadol, IV hydromorphone DC planning-patient is planning for outpatient PT Admission and Anticipated Discharge Date Admission Date: November 25, 2019 Subjective Postop day 1 Patient is currently sitting up in bed. He is awake and alert. He has no complaints. He states he felt a small pop in his left hip while doing exercises last night that caused some sharp pain into the groin however he no longer has this pain and is feeling well. Pain is controlled and he denies shortness of breath, chest pain, lightheadedness. He is hoping to go home today. Physical Exam Physical Exam: Silverlon dressing is clean, dry, and intact. Thigh is soft and nontender. Calves are soft nontender. Neurovascular is intact. Toes are mobile. He has good dorsiflexion and plantarflexion of the left ankle and foot. Leg lengths appear equal. Hemovac drainage was 5 mL's from the previous shift. Results & Data ([facility]) Vital Signs (Past 12 Hours) Vital Signs Temp Pulse Resp BP Pulse Ox 11/26/19 07:02 36.5 C 58 L 17 122/72 97 11/26/19 03:05 36.7 C 62 16 102/62 98 11/25/19 22:18 36.7 C 71 17 114/73 96 Laboratory Results Laboratory Results WBC 11.24 K/uL (4.8-10.8) H 11/26/19 05:13 RBC 4.42 M/uL (4.7-6.1) L 11/26/19 05:13 Hgb 14.4 g/dL (14.0-18.0) 11/26/19 05:13 Hct 40.0 % (42-52) L 11/26/19 05:13 MCV 90.5 fL (80-100) 11/26/19 05:13 MCH 32.6 pg (25-34) 11/26/19 05:13 MCHC 36.0 g/dL (32-36) 11/26/19 05:13 RDW Std Deviation 43.5 fL (36.4-46.3) 11/26/19 05:13 RDW Coeff of Lars 13.4 % (11.5-14.5) 11/26/19 05:13 Plt Count 237 K/uL (130-400) 11/26/19 05:13 MPV 10.1 fL (7.4-10.4) 11/26/19 05:13 Immature Gran % (Auto) 0.2 % 11/26/19 05:13 Neut % (Auto) 86.7 % 11/26/19 05:13 Lymph % (Auto) 6.7 % 11/26/19 05:13 [place] % (Auto) 6.3 % 11/26/19 05:13 Eos % (Auto) 0.1 % 11/26/19 05:13 Baso % (Auto) 0.0 % 11/26/19 05:13 Immature Gran # (Auto) 0.02 K/uL (0.00-0.02) 11/26/19 05:13 Neut # (Auto) 9.75 K/uL (1.4-6.5) H 11/26/19 05:13 Lymph # (Auto) 0.75 K/uL (1.2-3.4) L 11/26/19 05:13 [place] # (Auto) 0.71 K/uL (0.11-0.59) H 11/26/19 05:13 Eos # (Auto) 0.01 K/uL (0-0.5) 11/26/19 05:13 Baso # (Auto) 0.00 K/uL (0-0.2) 11/26/19 05:13 PT 10.5 Seconds (9.0-12.0) 10/21/19 09:24 INR 1.0 (0.9-1.1) 10/21/19 09:24 APTT 25.4 Seconds (21.0-31.0) 10/21/19 09:24 PTT Ratio 0.9 10/21/19 09:24 Sodium 138 mmol/L (136-145) 11/26/19 05:13 Potassium 4.2 mmol/L (3.5-5.1) 11/26/19 05:13 Chloride 108 mmol/L (98-107) H 11/26/19 05:13 Carbon Dioxide 24 mmol/L (21-32) 11/26/19 05:13 Anion Gap 6.0 (3-11) 11/26/19 05:13 BUN 13 mg/dl (7-18) 11/26/19 05:13 Creatinine 0.89 mg/dl (0.6-1.4) 11/26/19 05:13 Est Cr Clr Drug Dosing 149.6 ml/min 11/26/19 05:13 Est GFR ( Amer) 124.0 11/26/19 05:13 Est GFR (Non-Af Amer) 107.0 11/26/19 05:13 BUN/Creatinine Ratio 14.8 (10-20) 11/26/19 05:13 Glucose 120 mg/dl (70-99) H 11/26/19 05:13 Calcium 8.4 mg/dl (8.5-10.1) L 11/26/19 05:13 Total Bilirubin 2.1 mg/dl (0.2-1) H 10/21/19 09:24 AST 20 U/L (15-37) 10/21/19 09:24 ALT 46 U/L (12-78) 10/21/19 09:24 Alkaline Phosphatase 87 U/L (45-117) 10/21/19 09:24 Total Protein 7.1 gm/dl (6.4-8.2) 10/21/19 09:24 Albumin 4.2 gm/dl (3.4-5.0) 10/21/19 09:24 Globulin 2.9 gm/dl (2.5-4.0) 10/21/19 09:24 Albumin/Globulin Ratio 1.4 (0.9-2) 10/21/19 09:24 Urine Color Dark Yellow 10/21/19 09:24 Urine Appearance Clear (Clear) 10/21/19 09:24 Urine pH 5.5 (4.5-7.5) 10/21/19 09:24 Ur Specific [place] 1.033 (1.000-1.030) H 10/21/19 09:24 Urine Protein Negative (Negative) 10/21/19 09:24 Urine Glucose (UA) Negative (Negative) 10/21/19 09:24 Urine Ketones Negative (Negative) 10/21/19 09:24 Urine Blood Negative (Negative) 10/21/19 09:24 Urine Nitrite Negative (Negative) 10/21/19 09:24 Urine Bilirubin Negative (Negative) 10/21/19 09:24 Urine Urobilinogen Negative (Negative) 10/21/19 09:24 Ur Leukocyte Esterase Negative (Negative) 10/21/19 09:24 Nasal Screen MRSA (PCR) Negative (Negative) 10/21/19 09:24 Blood Type A Positive 10/21/19 09:24 Antibody Screen NEGATIVE 10/21/19 09:24
[2019-11-26] MEDS: ASPIRIN 81 MG ECTAB PO SCH (08:32)
[2019-11-26] MEDS: MULTIVITAMIN TAB PO SCH (08:32)
[2019-11-26] MEDS: DOCUSATE SODIUM 100 MG CAP PO SCH (08:32)
[2019-11-26] MEDS: OXYCODONE HCL IR 5 MG TAB (IMMEDIATE RELEASE) PO PRN ×2 (08:34→12:31)
--- NOTE | 2019-11-26 12:09 | Discharge Summary ---
Date of Service November 26, 2019 Admission HPI Per Admitting Provider Pt has been having pain for years. Cant do adls anymore. Had his right hip replaced and doing well. Admission Exam Per Admitting Provider Constitutional: WD/WN, vitals as above Neck: trachea midline, no thyromegaly Respiratory: normal respiratory effort, lungs clear to auscultation Cardiovascular: RRR, no murmur, no edema Gastrointestinal (Abdomen): normal bowel sounds, soft, nontender, no hepatosplenomegaly Musculoskeletal: Hip: + limited ROM of hip Principal Diagnosis Left hip osteoarthritis Discharge Data Allergies Allergy/AdvReac Type Severity Reaction Status Date / Time loratadine Allergy Unknown UNK RXN, Verified 11/25/19 05:42 OCCURED A CHILD Sulfa (Sulfonamide Allergy Unknown UNK RXN Verified 11/25/19 05:42 Antibiotics) OCCURED A CHILD Consultations 11/26/19 08:00 Consult Case Management - Discharge Planning Routine Procedures Performed Operation Date: 11/25/19 07:00 Actual Procedures p Left Total Hip Arthroplasty, Uncemented(Left) - [facility] Course (1) Degenerative joint disease of left hip: Assessment & Plan (1) Degenerative joint disease of left hip: Postop day 1 status post left total hip arthroplasty PT/OT protocols. Weightbearing as tolerated. DVT prophylaxis with ASA twice daily and SCDs. Pain management with p.o. Tylenol oxycodone and or tramadol, IV hydromorphone DC planning-patient is planning for outpatient PT Postop day 1 Patient is currently sitting up in bed. He is awake and alert. He has no complaints. He states he felt a small pop in his left hip while doing exercises last night that caused some sharp pain into the groin however he no longer has this pain and is feeling well. Pain is controlled and he denies shortness of breath, chest pain, lightheadedness. He is hoping to go home today. Physical Exam Physical Exam: Silverlon dressing is clean, dry, and intact. Thigh is soft and nontender. Calves are soft nontender. Neurovascular is intact. Toes are mobile. He has good dorsiflexion and plantarflexion of the left ankle and foot. Leg lengths appear equal. Hemovac drainage was 5 mL's from the previous shift. Vital Signs Temp Pulse Resp BP Pulse Ox 11/26/19 07:02 36.5 C 58 L 17 122/72 97 11/26/19 03:05 36.7 C 62 16 102/62 98 11/25/19 22:18 36.7 C 71 17 114/73 96 Patient progressed well with his physical therapy and was remaining stable. Recheck of his Hemovac drainage since this morning showed 20 mL's prior to lunchtime. Plans were to leave the drain in place and the patient was otherwise remaining stable and was felt he can be discharged to home with plans for outpatient PT. Total Time Total Time Spent Total Time Spent (In Minutes): 5 Discharge Plan Discharge Items Patient Disposition: Home - Self-Care Reason For Visit: LEFT HIP OSTEOARTHRITIS Discharge Diagnosis: Left hip osteoarthritis Activity: Per Instructions section Weightbearing: Left weightbearing Weightbearing Comment: As tolerated with walker Non-emergency contact: Surgeon Call non-emergency contact if: your pain is not controlled, your temperature is above 101.5, your wound has increased redness and your wound has increased drainage Follow-up/Referrals: Brian Narayanan [Primary Care Provider] - Diet: Regular Addtl Attending Provider Instructions: Please follow Dr. Arnold's total hip arthroplasty instructions as written. These will be given to you at the time of your discharge. All of your medications will be sent to your pharmacy by Dr. Juarez's office. If you have any questions about your medications, please call his office. Silverlon- This is a large adhesive bandage that contains silver ions. This helps your incision heal by fighting off bacteria and protecting it from the outside environment. You are permitted to shower with this dressing. This will remain on your incision for 7 days and then should be removed. Some visible blood or drainage through the dressing window is normal. If there is significant drainage or leaking noted before the 7 days notify your doctor's office immediately. Once removed, keep incision clean and dry. If there is any drainage or redness noted, please call your surgeon. Follow-up with Dr. Arnold in 2 weeks. Please call for an appointment if one has not been made for you. [phone] Stand-Alone Forms: My [employer], Opioid Pain Management, Smoking Cessation Medications and DC Order Prescriptions: New aspirin [Ecotrin Low Strength] 81 mg Tablet,Delayed Release (Dr/Ec) 81 mg PO BID 30 Days Qty: 60 RF: 0 acetaminophen 500 mg Tablet 1,000 mg PO Q8 14 Days Qty: 84 RF: 0 Continued celecoxib [Celebrex] 100 mg Capsule 100 mg PO BID RF: 0 Discharge Orders: Discharge Order (Routine); Ordered 11/26/19 Ordered By: Benedicto King/Other Patient Handouts: Surgery Prevent DVT After, Hip Replace Total, Hip Replace Total Activity Admission Data Admit Date/Time: 11/25/19 08:42 Attending Provider: Bora Juarez Admit Provider: Bora Juarez Primary Care Provider: Brian Narayanan Other Interventions: Discharge Summary Assessment (RN) Last Done: 11/26/19 11:18
== END 2019-11-26 13:27 | disposition home or self-care (01) | DRG 470 ==
LOC: ASU 04:49 → 3E 08:42